=== PATIENT | female | born 1950 | race Caucasian/White ===

== ENCOUNTER 2017-01-21 16:25 | Inpatient (IN) ==
[2017-01-21] MEDS ORDERED: HYDROmorphone 2 MG/1 ML VIAL IV STA (17:18)
[2017-01-21] MEDS ORDERED: ONDANSETRON 4 MG/2 ML VIAL IV STA (17:18)
[2017-01-21] MEDS ORDERED: ZALEPLON 5 MG CAPSULE PO PRN (17:28)
[2017-01-21] MEDS ORDERED: MORPHINE 2 MG/1 ML SYRINGE IV PRN (17:28)
[2017-01-21] MEDS ORDERED: MAGNESIUM HYDROXIDE SUSP 30 ML UDCUP PO PRN (17:28)
[2017-01-21] MEDS ORDERED: ONDANSETRON 4 MG/2 ML VIAL ONE (17:29)
[2017-01-21] MEDS ORDERED: HYDROmorphone 2 MG/1 ML VIAL ONE (17:29)
[2017-01-21] MEDS ORDERED: ONDANSETRON 4 MG/2 ML VIAL IV ONE (18:10)
[2017-01-21] MEDS: LACTATED RINGERS 1,000 ML IV SCH ×2 (19:35→22:32)
[2017-01-21] MEDS: MORPHINE 2 MG/1 ML SYRINGE IV PRN ×2 (19:43→22:57)
[2017-01-21 20:00] LABS: Basophils % 0.3 % (0.0-0.8); Eosinophils % 0.2 % (0.00-10.9); Hematocrit 33.7 VOL% (35.7-47.0); Hemoglobin 11.4 GM/DL (12.0-16.0); Immature Granulocytes % 0.5 %; Immature Granulocytes Absolute 0.07 #; Lymphocytes # 2.8 10*3/uL (1.4-4.0); Lymphocytes % 20.2 % (21.3-54.2); Mean Corpuscular HGB Conc 33.8 GM/DL (32-36); Mean Corpuscular Hemoglobin 31 PG (27-34); Mean Corpuscular Volume 91.6 FL (87-102); Mean Platelet Volume 10.4 FL (9.6-12.0); Monocytes # 0.8 10*3/uL (0.11-0.8); Monocytes % 5.8 % (1.7-12.7); Neutrophils # 10.2 10*3/uL (1.4-7.4); Platelet Count 337 T/CUMM (130-400); Red Blood Count 3.68 MC/CUMM (3.8-5.5); Red Cell Distribution Width 13.2 % (9.3-17.3); White Blood Count 13.9 T/CUMM (4-12)
[2017-01-21 20:11] LABS: PT Patient Result 10.7 SECS; Partial Thromboplastin Time 23.6 SECS (0-40)
[2017-01-21 20:18] LABS: Albumin 3.6 G/DL (3.4-5.0); Bilirubin,Total 0.4 MG/DL (0.2-1.0); Calcium 8.7 MG/DL (8.5-10.1); Osmolality,Calculated 276.5 MOS/KG (273-304); Potassium 3.7 MMOL/L (3.5-5.1); Total Protein 6.8 G/DL (6.4-8.3)
[2017-01-21] MEDS: DOCUSATE SODIUM 100 MG CAPSULE PO SCH (20:55)
[2017-01-21] MEDS: ONDANSETRON 4 MG/2 ML VIAL IV PRN (22:26)
[2017-01-22] MEDS: LACTATED RINGERS 1,000 ML IV SCH (03:12)
[2017-01-22] MEDS: ONDANSETRON 4 MG/2 ML VIAL IV PRN ×2 (03:14→09:03)
[2017-01-22 05:32] LABS: Apearance,Urine Slightly Hazy (Clear); Bilirubin,Urine Negative (Negative); Blood, Urine Small mg/dL (Negative); Glucose,Urine (UA) Negative (Negative); Hyaline Casts,Urine 1 /LPF (0-3); Ketones,Urine Negative (Negative); Mucus,Urine Occasional /LPF (Occasional); Nitrite,Urine Negative (Negative); Protein,Urine Negative; RBC,Urine 4 /HPF (0-4); Squamous Epithelial Cell,Urine Occasional /HPF (0-10); Urine Color Yellow (Yellow); Urine Specific Gravity 1.015 (1.001-1.035); Urine Urobilinogen < 2.0 EU/DL (0.2-1.0); WBC,Urine 2 /HPF (0-6)
[2017-01-22] MEDS: DOCUSATE SODIUM 100 MG CAPSULE PO SCH ×2 (08:11→21:34)
[2017-01-22] MEDS ORDERED: ROPIVACAINE 0.5% 30 ML VIAL ONE (10:24)
[2017-01-22] MEDS ORDERED: ceFAZolin 1,000 MG in SYRINGE 1 EACH IV ONE (10:30)
[2017-01-22] MEDS ORDERED: BACITRACIN OINT 0.9 GM PACK TOP ONE (11:28)
[2017-01-22] MEDS ORDERED: MAGNESIUM HYDROXIDE SUSP 30 ML UDCUP PO PRN (14:41)
[2017-01-22] MEDS ORDERED: KETOROLAC 30 MG/1 ML VIAL IV PRN (14:45)
[2017-01-22] MEDS ORDERED: PROPOFOL 200 MG/20 ML VIAL IV ONE (15:29)
[2017-01-22] MEDS ORDERED: SEVOFLURANE 1 UNIT/15 MINUTE INH ONE (15:29)
[2017-01-22] MEDS ORDERED: MIDAZOLAM 2 MG/2 ML VIAL ONE (15:30)
[2017-01-22] MEDS ORDERED: fentaNYL 100 MCG/2 ML VIAL ONE (15:30)
[2017-01-22] MEDS ORDERED: NEOSTIGMINE 10 MG/10 ML VIAL ONE (15:30)
[2017-01-22] MEDS ORDERED: DEXAMETHASONE 10 MG/1 ML VIAL ONE (15:30)
[2017-01-22] MEDS ORDERED: ONDANSETRON 4 MG/2 ML VIAL ONE (15:30)
[2017-01-22] MEDS ORDERED: GLYCOPYRROLATE 0.4 MG/2 ML VIAL ONE (15:30)
[2017-01-22] MEDS ORDERED: LACTATED RINGERS 1,000 ML IV ONE (15:31)
[2017-01-22] MEDS ORDERED: ACETAMINOPHEN 1,000 MG/100 ML VIAL IV ONE (15:31)
[2017-01-22] MEDS ORDERED: ROCURONIUM 100 MG/10 ML VIAL IV ONE (15:31)
[2017-01-22] MEDS: ceFAZolin 1,000 MG in SYRINGE 1 EACH IV SCH (20:35)
[2017-01-23] MEDS: LACTATED RINGERS 1,000 ML IV SCH ×2 (01:20)
[2017-01-23] MEDS: ceFAZolin 1,000 MG in SYRINGE 1 EACH IV SCH (04:42)
[2017-01-23 07:28] VITALS: BP 134/67
[2017-01-23 08:00] LABS: Basophils % 0.1 % (0.0-0.8); Eosinophils % 0.1 % (0.00-10.9); Hematocrit 28.7 VOL% (35.7-47.0); Hemoglobin 9.8 GM/DL (12.0-16.0); Immature Granulocytes % 0.4 %; Immature Granulocytes Absolute 0.05 #; Lymphocytes # 2.7 10*3/uL (1.4-4.0); Lymphocytes % 22.7 % (21.3-54.2); Mean Corpuscular HGB Conc 34.1 GM/DL (32-36); Mean Corpuscular Hemoglobin 31 PG (27-34); Mean Corpuscular Volume 91.1 FL (87-102); Mean Platelet Volume 10.8 FL (9.6-12.0); Monocytes # 0.9 10*3/uL (0.11-0.8); Monocytes % 7.8 % (1.7-12.7); Neutrophils # 8.3 10*3/uL (1.4-7.4); Neutrophils % 68.9 % (38.7-73.9); Platelet Count 277 T/CUMM (130-400); Red Blood Count 3.15 MC/CUMM (3.8-5.5); Red Cell Distribution Width 13.2 % (9.3-17.3)
[2017-01-23] MEDS: DOCUSATE SODIUM 100 MG CAPSULE PO SCH (08:04)
[2017-01-23 08:24] LABS: Calcium 8.7 MG/DL (8.5-10.1); Osmolality,Calculated 281.1 MOS/KG (273-304); Potassium 3.3 MMOL/L (3.5-5.1)
== END 2017-01-23 11:17 | disposition home or self-care (01) | DRG 494 ==
LOC: EDUNIT# → EDSEX → EDBD → N.ED 16:25 → N.EDINP 17:28 → N.3E 18:06
PROVIDERS: ADMIT Orthopaedic Surgery; ATTEND Orthopaedic Surgery